=== PATIENT | male | born 1965 | race Caucasian/White ===

== ENCOUNTER 2018-01-27 01:15 | Emergency (ER) | payer SELFPAY ==
[2018-01-27] MEDS ORDERED: ASPIRIN 81 MG CHEW TAB PO ONE (01:46)
--- NOTE | 2018-01-27 01:52 | ED Physician Documentation ---
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 Pt presents to the ED with c/o sharp Left sided chest pain non radiating, with dyspnea and diaphoresis that awoke him from sleep at 1130 pm. 8 sharp. now 09/10. reports increased stress. pt denies current dyspnea, syncope/near syncope, headache, dizziness, visual disturbances, n/v/d/c, fever, rash, sick contacts, dysuria, trauma. melena or hematochezia, change in bowel or bladder function. anxiety or depression. ROS Negative unless otherwise specified. Onset: other (1130) Timing: sudden onset Duration: waxing, waning Last known Well Date: 01/26/18 Last Known Well Time: 23:00 Context: sleep Severity: severe Quality: sharp Chest Pain Radiation: no radiation Chest Pain Signs/Symptoms: diaphoresis, dyspnea. denies: nausea, vomiting Worsened By: deep breaths Relieved By: other (deep inspiration ) - ROS CONST: none. denies: fever, chills MS/LYMPH: none. denies: neck pain, ankle swelling, back pain GI/: denies: abdominal pain, vomiting, nausea, diarrhea EYES/ENT: none SKIN/ENDO: none NEURO/PSYCH: none. denies: headache, fainting - PAST HX NE risk factors: hypertension DVT/PE Risk Factors: none TAD/AAA risk factors: none Neuro deficit: none GI disease: GERD Lung disease: none Surgeries/Procedures: none Allergies/Adverse Reactions: Allergies Allergy/AdvReac Type Severity Reaction Status Date / Time Iodinated Contrast- Oral and Allergy Verified 01/27/18 01:35 IV Dye iodine Allergy Verified 01/27/18 01:35 Home Medications: Ambulatory Orders Medication Instructions Recorded Alprazolam [Xanax] 0.25 mg PO 8HS PRN #20 tablet 01/27/18 Metoprolol Tartrate [Lopressor] 12.5 mg PO DAILY #30 tablet 01/27/18 - SOCIAL HX Smoking History: non-smoker Alcohol Use: occasionally - FAMILY HX Family HX: other (GM CVA, mother cancer) - VITAL SIGNS Vital Signs: Vital Signs Temp Pulse Resp BP Pulse Ox 98.0 F 76 22 207/123 94 01/27/18 01:15 01/27/18 01:15 01/27/18 01:15 01/27/18 01:15 01/27/18 01:15 Progress - Results/Orders Results/Orders: pt reports pain improved to 3/10 after ntg sl x 3 0300-pt reports pain 1/10 after GI cocktail 0600-pt reports right sided chest pain 1/10. reproducible with chest wall palpation. reports readiness for d/c. ED Results Lab/Radiology - Lab Results Lab Results: 0112 Rate 79. left axis deviation. QRS 112no acute st elevation/depression normal sinus rhythm no ectopy. non acute borderline ecg. interp by me 0225 Rate 74. left axis deviation. QRS [address] elevation/depression normal sinus rhythm no ectopy interp by me 0551 Rate 68. left axis deviation. QRS 109. no acute st elevation/depression normal sinus rhythm. no ectopy. non acute borderline ecg. interp by me No ekg changes, acute or progressive ST elevation/depression to indicate STEMI. Serial troponin negative. Negative for acute ACS. d-dimer negative-low suspicion for DVT/PE. - Radiology Radiology Impressions: Chest two views History: Chest pain and shortness of breath Findings: Cardiomegaly, low lung volumes, and mild to moderate right lower lobe infiltrate or atelectasis are observed. The left lung is clear. There is no pleural effusion. Low lung volumes are potentially related to obesity. Impression: 1. Low lung volumes, possibly related to obesity. 2. Cardiomegaly. 3. Right lower lobe infiltrate versus atelectasis. Electronically signed on Jan 27, 2018 2:29:26 AM CDT by: Uriel Tobias - Orders Orders: ED Orders Category Date Time Status Continuous EKG monitoring Q30M Care 01/27/18 01:46 Active Continuous Pulse Oximetry Q30M Care 01/27/18 01:[address] IV Lock 1T Care 01/27/18 01:46 Active CHEST 2VIEW [RAD] Stat Exams 01/27/18 Ordered CBC REF Routine Lab 01/27/18 01:32 Received CBC/PLATELET/DIFF Routine Lab 01/27/18 01:46 Ordered CKMB Stat Lab 01/27/18 Ordered CMP Routine Lab 01/27/18 01:46 Ordered CREATINE KINASE Routine Lab 01/27/18 01:46 Ordered D DIMER Stat Lab 09/26/18 Ordered PT-INR Routine Lab 01/27/18 Ordered PTT Routine Lab 01/27/18 Ordered TROPONIN I (cTnI) Stat Lab 01/27/18 01:46 Ordered Aspirin Med 01/27/18 01:46 Once 324 mg PO NOW ONE Nitroglycerin [Nitroquick] Med 01/27/18 01:46 Ordered 0.4 mg SL Q5M PRN Oxygen Daily Oxygen 01/27/18 02:00 Ordered EKG WITH COMPARISON Stat Ther 01/27/18 01:46 Ordered Chest Pain Physical Exam - EXAM General Appearance: no acute distress, alert, anxious EENT: eye inspection normal, pharynx normal, no signs of dehydration. No: dry mucous membranes Neck: nml inspection, other. No: lymphadenopathy (trachea midline) Respiratory: no resp. distress, nml breath sounds, other (chest wall tenderness). No: resp.distress, decreased air movement, wheezes, rales, rhonchi CVS: reg. rate & rhythm, no murmur, no gallop, no friction rub, pulses equal Abdomen: soft, normal bowel sounds, no distension, non-tender Skin: warm/dry Extremities: non-tender, normal range of motion, no evidence of injury, no edema Neuro: oriented X3, CN's nml as tested, motor nml, sensation nml, mood/affect nml, cognition normal Discharge Clincal Impression: Costochondritis, acute, Anxiety Hypertension Qualifiers: Hypertension type: essential hypertension Qualified Code(s): I10 - Essential (primary) hypertension GERD (gastroesophageal reflux disease) Qualifiers: Esophagitis presence: without esophagitis Qualified Code(s): K21.9 - Gastro- esophageal reflux disease without esophagitis Prescriptions: Alprazolam [Xanax] 0.25 mg PO 8HS PRN #20 tablet PRN Reason: Anxiety Metoprolol Tartrate [Lopressor] 12.5 mg PO DAILY #30 tablet Referrals: Dov Mccain [Primary Care Provider] - 2 Days Additional Instructions: Metoprolol 12.5 mg daily in the morning for high blood pressure Log blood pressures twice a day in a journal and bring to next primary care appointment. Follow up with primary care in 1-2 weeks need outpatient stress test and/or cardiology referral. Return to emergency dept if chest pain, shortness of breath, feeling faint or passing out, fever, chills, cough, or any concern. take zantac 1-2 times daily or one week then once daily. xanax 0.25 mg 1-2 tabs every 8 hours as needed for anxiety Condition: Good Disposition: 01 HOME, SELF-CARE Decision to Admit: NO Date of Decison to Admit: 01/27/18 Decision Time: 07:26
[2018-01-27] MEDS ORDERED: NITROGLYCERIN 0.4 MG TAB.SUBL SL ONE (01:53)
[2018-01-27] MEDS: NITROGLYCERIN 0.4 MG TAB.SUBL SL PRN ×2 (01:59→02:07)
[2018-01-27] MEDS ORDERED: MAG HYDROX/ALUMINUM HYD/SIMETH 30 ML, Lidocaine 2%Visc 15ml 20 MG, PHENobarb/HYOSCY/ATR... PO ONE ×3 (02:25)
[2018-01-27] MEDS ORDERED: MAG HYDROX/ALUMINUM HYD/SIMETH 30 ML UDC PO ONE (02:32)
[2018-01-27] MEDS ORDERED: Lidocaine 2%Visc 15ml 20 MG/ML UDC ONE (02:32)
[2018-01-27 02:51] LABS: BASO % 0.3 % (0.0-1.5); EOS % 4.7 % (0.0-6.8); LYMPH ABS # 1.77 thou/uL (0.60-4.00); MCH. 29.6 pg (28.0-34.0); MCV 86.7 fL (80.0-100.0); MONOCYTE % 7.6 % (0.0-11.0); MONOCYTE ABS # 0.64 thou/uL (0.00-0.90); PLATELET COUNT 317 thou/uL (130-400)
[2018-01-27 06:07] VITALS: BP 163/84
--- NOTE | 2018-01-27 06:52 | Diagnostic Imaging Report ---
ELIU MILLAN [facility] [id number] [facility].[address] [id number] Report Submission Date: Jan 27, 2018 2:29:26 AM CDT Patient Study Name: KEITH KINGSLEY Date: Jan 27, 2018 2:09:23 AM CDT Modality Type: DX Gender: M Description: CHEST : 67 Institution: [facility] Physician: ELIU MILLAN Chest two views History: Chest pain and shortness of breath Findings: Cardiomegaly, low lung volumes, and mild to moderate right lower lobe infiltrate or atelectasis are observed. The left lung is clear. There is no pleural effusion. Low lung volumes are potentially related to obesity. Impression: 1. Low lung volumes, possibly related to obesity. 2. Cardiomegaly. 3. Right lower lobe infiltrate versus atelectasis. Electronically signed on Jan 27, 2018 2:29:26 AM CDT by: Uriel CHAPIN
[2018-01-27 09:12] LABS: eGFR (Non-African) > 60
== END 2018-01-27 07:45 | disposition home or self-care (01) ==
LOC: ED 01:15
DX: K21.9 Gastro-esophageal reflux disease without esophagitis (principal); I10 Essential (primary) hypertension; M94.0 Chondrocostal junction syndrome [Tietze]; F41.9 Anxiety disorder, unspecified
CPT/HCPCS: 71046; 80053; 82550; 82553; 84484; 85025; 85379; 85610; 85730; 93005; A9270; 99285; S1016